=== PATIENT | female | born 1970 | race African-American/Black ===

== ENCOUNTER 2024-01-27 15:35 | Emergency (ER) | payer SELFPAY ==
[~2024-01-27] VITALS: Ht 167.6 cm; Wt 66.0 kg
[2024-01-27 15:37] VITALS: O2SAT 100
[2024-01-27] MEDS: IBUPROFEN 600MG TABLET PO ONE (17:15)
[2024-01-27 17:36] VITALS: BP 124/75; PULSE 81; RESP 18; TEMP 98.5
== END 2024-01-27 18:12 | disposition home or self-care (01) ==
LOC: ER 15:35
DX: M79.604 Pain in right leg (principal)
CPT/HCPCS: 93971; 99284